=== PATIENT | female | born 1960 | race African-American/Black ===

== ENCOUNTER 2020-10-19 06:48 | Inpatient (IN) | payer OTHER, MEDICAID ==
[~2020-10-19] VITALS: Ht 162.6 cm; Wt 148.0 kg
[2020-10-19] MEDS ORDERED: LORazepam 2MG/ML-1ML VIAL IV ONE ×2 (07:00→07:15)
[2020-10-19] MEDS ORDERED: LORazepam 2MG/ML-1ML VIAL ONE (07:08)
[2020-10-19] MEDS ORDERED: SODIUM CHLORIDE 0.9% 1,000 ML IV ONE (07:15)
[2020-10-19] MEDS ORDERED: ACETAMINOPHEN 650 MG RECT SUPP PR ONE ×2 (07:15→07:30)
[2020-10-19] MEDS ORDERED: SODIUM CHLORIDE 0.9% 1,000 ML IVB ONE (07:15)
[2020-10-19 07:44] LABS: Urine Bacteria FEW /hpf (None Seen); Urine Blood TRACE /uL (Negative); Urine Hyaline Cast FEW /lpf (0 - 2); Urine Mucus FEW (None Seen); Urine Specific Gravity 1.019 (1.001-1.035); Urine WBC 1 /hpf (0 - 5)
[2020-10-19 07:52] LABS: Basophils # (auto) 0 10 ^3/uL (0-0.2); Eosinophils # (auto) 0 10 ^3/uL (0-0.8); Eosinophils % (auto) 0.1 % (0.0-7.0); Hemoglobin 12.9 g/dL (12.2-16.2); Lymphocytes # (auto) 1.2 10 ^3/uL (0.4-5.4)
[2020-10-19 07:56] LABS: Basophils % (auto) 0.4 % (0.0-2.0); Hematocrit 39.7 % (36.0-46.0); Lymphocytes % (auto) 13.8 % (10.0-50.0); Mean Corpuscular Hemoglobin 23.6 pg (28.0-32.0); Mean Corpuscular Hgb Conc. 32.5 g/dL (32.0-36.0); Mean Corpuscular Volume 72.5 fL (80.0-100.0); Monocytes # (auto) 0.2 10 ^3/uL (0-1.3); Monocytes % (auto) 2.7 % (0.0-12.0); Neutrophils # (auto) 7.1 10 ^3/uL (1.6-8.6); Red Blood Cells 5.48 10^6/uL (4.0-5.20); Red Cell Distribution Width 22.6 % (11.8-14.3); White Blood Cell 8.6 10^3/uL (4.4-10.8)
[2020-10-19 07:58] LABS: Alcohol, Urine < 3.0 mg/dL (0-10); Amphetamine Screen, Urine NEGATIVE (NEGATIVE); Barbiturate Scree,Urine NEGATIVE (NEGATIVE); Benzodiazephine Screen, Urine NEGATIVE (NEGATIVE); Cannabinoid Screen, Urine POSITIVE (NEGATIVE); Cocaine Screen, Urine NEGATIVE (NEGATIVE); Opiate Scree,Urine POSITIVE (NEGATIVE); Phencyclidine Screen, Urine NEGATIVE (NEGATIVE)
[2020-10-19 08:10] LABS: Anion Gap 8 (5-15); Blood Urea Nitrogen 9 mg/dL (7-18); Calcium 8.3 mg/dL (8.5-10.1); Carbon Dioxide 21 mmol/L (21-32); Chloride 106 mmol/L (98-107); Glucose 149 mg/dL (74-106); Potassium 3.6 mmol/L (3.5-5.1); Sodium 135 mmol/L (136-145)
[2020-10-19 08:13] LABS: Alanine Aminotransferase 19 U/L (13-56); Blood Alcohol < 3.0 mg/dL (0-5); GFR African American 54 mL/min; GFR Non-African American 45 mL/min
[2020-10-19 08:14] LABS: Lactic Acid w/Reflex 3.5 mmol/L (0.4-2.0)
[2020-10-19 08:15] LABS: Blood Alcohol < 3.0 mg/dL (0-5)
[2020-10-19] MEDS ORDERED: cefTRIAXone 1GM/50ML D5W 50 ML IV ONE (08:15)
[2020-10-19] MEDS ORDERED: AZITHROMYCIN 500MG/ 250ML 250 ML IV ONE (08:30)
[2020-10-19 08:36] LABS: Alkaline Phosphatase 46 U/L (45-117); Aspartate Aminotransferase 21 U/L (15-37); Bilirubin, Total 0.4 mg/dL (0.2-1.0); Total Protein 8.2 g/dL (6.4-8.2)
[2020-10-19 08:42] LABS: Alcohol, Urine < 3.0 mg/dL (0-10); Amphetamine Screen, Urine NEGATIVE (NEGATIVE); Barbiturate Scree,Urine NEGATIVE (NEGATIVE); Benzodiazephine Screen, Urine NEGATIVE (NEGATIVE); Cannabinoid Screen, Urine POSITIVE (NEGATIVE); Cocaine Screen, Urine NEGATIVE (NEGATIVE); Opiate Scree,Urine POSITIVE (NEGATIVE); Phencyclidine Screen, Urine NEGATIVE (NEGATIVE)
[2020-10-19] MEDS ORDERED: IOHEXOL 300 MG/ML 100ML BOTTLE IJ ONE (13:28)
[2020-10-19] MEDS ORDERED: NITROGLYCERIN 0.4 MG SL TAB SL PRN (16:45)
[2020-10-19] MEDS ORDERED: MORPHINE SULF INJ 2 MG/ML SYRINGE 1ML IV PRN (16:45)
[2020-10-19] MEDS ORDERED: ACETAMINOPHEN 325 MG TAB PO PRN (16:45)
[2020-10-19] MEDS ORDERED: ESCI-28 PO (16:48)
[2020-10-19] MEDS ORDERED: ATEN100T PO (16:48)
[2020-10-19] MEDS: SOD CHL 0.45% 1,000 ML IV SCH (17:23)
[2020-10-19] MEDS: metroNIDAZOLE 500MG/100ML 100 ML IV SCH (17:23)
[2020-10-19 18:35] VITALS: BP 153/69
[2020-10-19] MEDS: ASPirin 81 mg TAB PO SCH (18:42)
[2020-10-19] MEDS: ATORVASTATIN 20 MG TAB PO SCH (18:42)
[2020-10-19 19:15] LABS: Cholesterol 101 mg/dL (< 200)
[2020-10-19 19:18] LABS: HDL Cholesterol 35 mg/dL (40-59); LDL Cholesterol 62 mg/dL (< 100); Triglycerides 68 mg/dL (< 150)
[2020-10-19 22:00] VITALS: BP 127/55
[2020-10-20] MEDS: HYDROcodone-ACET 5/325MG TAB PO PRN ×4 (02:53→19:40)
[2020-10-20] MEDS: metroNIDAZOLE 500MG/100ML 100 ML IV SCH (04:44)
[2020-10-20 05:00] VITALS: BP 141/86
[2020-10-20 05:36] LABS: Eosinophils # (auto) 0 10 ^3/uL (0-0.8); Eosinophils % (auto) 0.1 % (0.0-7.0); Hemoglobin 11.1 g/dL (12.2-16.2); Lymphocytes % (auto) 12.9 % (10.0-50.0); Mean Corpuscular Hemoglobin 23.5 pg (28.0-32.0)
[2020-10-20 05:39] LABS: Basophils # (auto) 0 10 ^3/uL (0-0.2); Basophils % (auto) 0.4 % (0.0-2.0); Hematocrit 34.5 % (36.0-46.0); Lymphocytes # (auto) 1.3 10 ^3/uL (0.4-5.4); Mean Corpuscular Hgb Conc. 32.3 g/dL (32.0-36.0); Mean Corpuscular Volume 72.9 fL (80.0-100.0); Monocytes # (auto) 1.3 10 ^3/uL (0-1.3); Monocytes % (auto) 12.6 % (0.0-12.0); Neutrophils # (auto) 7.7 10 ^3/uL (1.6-8.6); Red Blood Cells 4.73 10^6/uL (4.0-5.20); White Blood Cell 10.4 10^3/uL (4.4-10.8)
[2020-10-20 05:41] LABS: Red Cell Distribution Width 23.4 % (11.8-14.3)
[2020-10-20 05:54] LABS: Albumin 2.6 g/dL (3.4-5.0); BUN/Creatinine Ratio 10.6; Calcium 7.7 mg/dL (8.5-10.1); Potassium 3.4 mmol/L (3.5-5.1)
[2020-10-20 05:56] LABS: Bilirubin, Total 0.6 mg/dL (0.2-1.0)
[2020-10-20] MEDS: ATORVASTATIN 20 MG TAB PO SCH (08:07)
[2020-10-20] MEDS: cefTRIAXone 1GM/50ML D5W 50 ML IV SCH (08:07)
[2020-10-20] MEDS: ASPirin 81 mg TAB PO SCH (08:07)
[2020-10-20] MEDS ORDERED: POTASSIUM CHL 10 Meq TABLET PO ONE (08:15)
[2020-10-20 09:00] VITALS: BP 151/66
[2020-10-20] MEDS ORDERED: IPRATROPIUM BROM 0.5 MG/2.5ML INH SOL NEB PRN (09:30)
[2020-10-20] MEDS ORDERED: NITROGLYCERIN 0.4 MG SL TAB SL PRN (09:30)
[2020-10-20] MEDS ORDERED: guaiFENesin-DM 100/10mg/5ml SYR PO PRN (09:30)
[2020-10-20] MEDS ORDERED: MORPHINE SULF INJ 2 MG/ML SYRINGE 1ML IV PRN (09:30)
[2020-10-20] MEDS ORDERED: ENOXAPARIN SOD 40 MG/0.4 ML SYRINGE SC SCH (10:00)
[2020-10-20 10:20] VITALS: BP 141/86
[2020-10-20] MEDS: AZITHROMYCIN 250 MG TAB PO SCH (10:28)
[2020-10-20 13:00] VITALS: BP 160/91
[2020-10-20] MEDS: SOD CHL 0.45% 1,000 ML IV SCH (13:39)
[2020-10-20] MEDS: LISINOPRIL 10 MG TAB PO SCH (14:13)
[2020-10-20 17:00] VITALS: BP 197/70
[2020-10-20] MEDS: hydrALAZINE HCL 25 MG TAB PO SCH (17:05)
[2020-10-20 20:52] VITALS: BP 142/71
[2020-10-20] MEDS: ENOXAPARIN SOD 40 MG/0.4 ML SYRINGE SC SCH (21:39)
[2020-10-21] MEDS ORDERED: dilTIAZem 25 MG/5 ML VIAL IV ONE ×2 (00:15→06:45)
[2020-10-21] MEDS: hydrALAZINE HCL 25 MG TAB PO SCH ×3 (01:10→17:26)
[2020-10-21] MEDS: SOD CHL 0.45% 1,000 ML IV SCH (02:05)
[2020-10-21] MEDS: HYDROcodone-ACET 5/325MG TAB PO PRN ×3 (04:40→14:50)
[2020-10-21 05:00] VITALS: BP 106/59
[2020-10-21 05:40] LABS: Basophils # (auto) 0.1 10 ^3/uL (0-0.2); Eosinophils # (auto) 0.1 10 ^3/uL (0-0.8); Nucleated Red Blood Cells % 0.1 %
[2020-10-21 05:42] LABS: Hematocrit 36.7 % (36.0-46.0); Lymphocytes % (auto) 24.9 % (10.0-50.0); Mean Corpuscular Hemoglobin 23.5 pg (28.0-32.0); Mean Corpuscular Hgb Conc. 32.6 g/dL (32.0-36.0); Mean Corpuscular Volume 72.1 fL (80.0-100.0); Monocytes # (auto) 0.7 10 ^3/uL (0-1.3); Monocytes % (auto) 9.1 % (0.0-12.0); Neutrophils # (auto) 5.1 10 ^3/uL (1.6-8.6); Red Blood Cells 5.09 10^6/uL (4.0-5.20); White Blood Cell 7.9 10^3/uL (4.4-10.8)
[2020-10-21 05:53] LABS: Red Cell Distribution Width 22.7 % (11.8-14.3)
[2020-10-21 06:03] LABS: Potassium 3.2 mmol/L (3.5-5.1)
[2020-10-21 06:10] LABS: Albumin 2.5 g/dL (3.4-5.0); BUN/Creatinine Ratio 8.9; Bilirubin, Total 0.5 mg/dL (0.2-1.0); Total Protein 7.1 g/dL (6.4-8.2)
[2020-10-21] MEDS ORDERED: HYDR-4072 PO (07:15)
[2020-10-21] MEDS ORDERED: MORP1TAB14 PO (07:15)
[2020-10-21] MEDS ORDERED: ZOLP10TA PO (07:20)
[2020-10-21] MEDS: LISINOPRIL 10 MG TAB PO SCH (08:48)
[2020-10-21 09:00] VITALS: BP 99/72
[2020-10-21] MEDS: ASPirin 81 mg TAB PO SCH (09:12)
[2020-10-21] MEDS: ENOXAPARIN SOD 40 MG/0.4 ML SYRINGE SC SCH (09:13)
[2020-10-21] MEDS: AZITHROMYCIN 250 MG TAB PO SCH (09:13)
[2020-10-21] MEDS: ATORVASTATIN 20 MG TAB PO SCH (09:13)
[2020-10-21] MEDS: cefTRIAXone 1GM/50ML D5W 50 ML IV SCH (09:13)
[2020-10-21] MEDS ORDERED: APIX5TAB OR (11:34)
[2020-10-21] MEDS ORDERED: LISI-716 PO (11:34)
[2020-10-21] MEDS ORDERED: DILT120C54 PO (11:34)
[2020-10-21] MEDS ORDERED: ASPI1CHW15 PO (11:34)
[2020-10-21 13:00] VITALS: BP 140/70
[2020-10-21 13:01] VITALS: BP 99/72
[2020-10-21] MEDS ORDERED: AMIODARONE HCL 200 MG TAB PO ONE (14:45)
[2020-10-21 17:00] VITALS: BP 148/66
[2020-10-21] MEDS: metroNIDAZOLE 500 MG TAB PO SCH (21:11)
[2020-10-21 22:00] VITALS: BP 128/66
[2020-10-22] MEDS: hydrALAZINE HCL 25 MG TAB PO SCH ×3 (00:21→17:59)
[2020-10-22] MEDS ORDERED: POTASSIUM CHLORIDE 40 MEQ, LIDOCAINE 1% (LOCAL ANESTH.) 4 ML in SODIUM CHL 0.9% 250 ML IV ONE (00:30)
[2020-10-22] MEDS: AMIODARONE HCL 200 MG TAB PO SCH ×3 (00:48→21:23)
[2020-10-22] MEDS ORDERED: POTASSIUM CHL 20 Meq TABLET PO ONE (01:30)
[2020-10-22] MEDS: HYDROcodone-ACET 5/325MG TAB PO PRN ×4 (02:04→21:30)
[2020-10-22 05:00] VITALS: BP 121/90
[2020-10-22] MEDS: metroNIDAZOLE 500 MG TAB PO SCH ×3 (05:31→21:23)
[2020-10-22] MEDS: VANCOMYCIN HCL 125MG/5ML ORAL SOL PO SCH ×4 (05:31→21:23)
[2020-10-22 09:00] VITALS: BP 91/55
[2020-10-22] MEDS: ASPirin 81 mg TAB PO SCH (09:28)
[2020-10-22] MEDS: ATORVASTATIN 20 MG TAB PO SCH (09:28)
[2020-10-22] MEDS: AZITHROMYCIN 250 MG TAB PO SCH (09:28)
[2020-10-22] MEDS: cefTRIAXone 1GM/50ML D5W 50 ML IV SCH (09:28)
[2020-10-22] MEDS ORDERED: AMIO200T4 PO (09:53)
[2020-10-22] MEDS ORDERED: METR500T PO (09:53)
[2020-10-22] MEDS ORDERED: VANC125PO PO (09:53)
[2020-10-22] MEDS ORDERED: FUROSEMIDE 40 MG/4 ML VIAL IV ONE (11:15)
[2020-10-22 13:08] VITALS: BP 133/86
[2020-10-22] MEDS ORDERED: IOHEXOL 350 MG/ML 100ML IJ ONE (13:39)
[2020-10-22 17:00] VITALS: BP 99/64
[2020-10-22] MEDS ORDERED: APIX5TAB OR (17:51)
[2020-10-22 22:00] VITALS: BP 164/79
[2020-10-23] MEDS: hydrALAZINE HCL 25 MG TAB PO SCH ×2 (00:44→08:41)
[2020-10-23 05:05] VITALS: BP 105/60
[2020-10-23] MEDS: metroNIDAZOLE 500 MG TAB PO SCH (05:20)
[2020-10-23] MEDS: HYDROcodone-ACET 5/325MG TAB PO PRN (05:20)
[2020-10-23] MEDS: VANCOMYCIN HCL 125MG/5ML ORAL SOL PO SCH (05:20)
[2020-10-23] MEDS: AMIODARONE HCL 200 MG TAB PO SCH (08:40)
[2020-10-23] MEDS: ATORVASTATIN 20 MG TAB PO SCH (08:40)
[2020-10-23] MEDS: ASPirin 81 mg TAB PO SCH (08:40)
[2020-10-23] MEDS ORDERED: POTASSIUM CHL 20 Meq TABLET PO SCH (10:00)
== END 2020-10-23 09:15 | disposition home health service (06) | DRG 314 ==
LOC: EDBD 06:48 → ER 06:48 → TELE 16:45 → INTOOBSV 16:45 → TELE-EAST 18:04 → OBSVTOIN 10-20 09:28
PROVIDERS: ADMIT Hospitalist; ATTEND Hospitalist
DX: I27.20 Pulmonary hypertension, unspecified (principal); I26.99 Other pulmonary embolism without acute cor pulmonale; G92 Toxic encephalopathy; A04.72 Enterocolitis due to Clostridium difficile, not specified as recurrent; Z68.43 Body mass index [BMI] 50.0-59.9, adult; T40.601A Poisoning by unspecified narcotics, accidental (unintentional), initial encounter; E66.01 Morbid (severe) obesity due to excess calories; G89.4 Chronic pain syndrome; I10 Essential (primary) hypertension; I48.91 Unspecified atrial fibrillation; R55 Syncope and collapse; E87.6 Hypokalemia; F03.90 Unspecified dementia, unspecified severity, without behavioral disturbance, psychotic disturbance, mood disturbance, and anxiety; F17.210 Nicotine dependence, cigarettes, uncomplicated; E03.9 Hypothyroidism, unspecified; Z20.822 Contact with and (suspected) exposure to COVID-19; Y92.89 Other specified places as the place of occurrence of the external cause; Z71.6 Tobacco abuse counseling; Z90.710 Acquired absence of both cervix and uterus
CPT/HCPCS: 36415; 36600; 70450; 70551; 71045; 71275; 72125; 73610; 73630; 74177; 80053; 80061; 80307; 80320; 81001; 82550; 82805; 82962; 83036; 83605; 83615; 83735; 84132; 84443; 84484; 85025; 85048; 87040; 87045; 87426; 87427; 87493; 93005; 93306; 93886; 93971; 94640; 96361; 96365; 96375; 99291; G0378; J0696; J2001; J3490; J7042

== ENCOUNTER 2020-11-01 21:01 | Emergency (ER) | payer OTHER, MEDICAID ==
[~2020-11-01] VITALS: Ht 154.9 cm; Wt 149.7 kg
[~2020-11-01 21:01] MED LIST: AMIO200T4 PO; APIX5TAB OR; ASPI1CHW15 PO; ESCI-28 PO; HYDR-4072 PO; LISI-716 PO; METR500T PO; VANC125PO PO
[2020-11-02 00:57] LABS: White Blood Cell 11.4 10^3/uL (4.4-10.8)
[2020-11-02 00:59] LABS: Basophils # (auto) 0.1 10 ^3/uL (0-0.2); Basophils % (auto) 0.8 % (0.0-2.0); Eosinophils # (auto) 0 10 ^3/uL (0-0.8); Eosinophils % (auto) 0.3 % (0.0-7.0); Hematocrit 41.5 % (36.0-46.0); Hemoglobin 13.6 g/dL (12.2-16.2); Lymphocytes # (auto) 1.4 10 ^3/uL (0.4-5.4); Lymphocytes % (auto) 12.6 % (10.0-50.0); Mean Corpuscular Hemoglobin 24.7 pg (28.0-32.0); Mean Corpuscular Hgb Conc. 32.7 g/dL (32.0-36.0); Mean Corpuscular Volume 75.4 fL (80.0-100.0); Monocytes # (auto) 0.9 10 ^3/uL (0-1.3); Monocytes % (auto) 7.5 % (0.0-12.0); Neutrophils % (auto) 78.8 % (37.0-80.0)
[2020-11-02 01:10] LABS: Alanine Aminotransferase 16 U/L (13-56); Albumin 3.2 g/dL (3.4-5.0); Anion Gap 8 (5-15); Aspartate Aminotransferase 14 U/L (15-37); BUN/Creatinine Ratio 17.1; Blood Urea Nitrogen 13 mg/dL (7-18); Calcium 8.5 mg/dL (8.5-10.1); Carbon Dioxide 19 mmol/L (21-32); Chloride 115 mmol/L (98-107); GFR African American 100 mL/min; GFR Non-African American 83 mL/min; Glucose 98 mg/dL (74-106); Potassium 3.3 mmol/L (3.5-5.1); Sodium 142 mmol/L (136-145)
[2020-11-02 01:14] LABS: Alkaline Phosphatase 55 U/L (45-117); Bilirubin, Total 0.5 mg/dL (0.2-1.0); Total Protein 8.3 g/dL (6.4-8.2)
[2020-11-02 01:25] LABS: Red Cell Distribution Width 25.1 % (11.8-14.3)
[2020-11-02] MEDS ORDERED: MORPHINE SULFATE 4 MG/ML SYR/VIAL IV ONE (05:30)
[2020-11-02] MEDS ORDERED: SODIUM CHLORIDE 0.9% 1,000 ML IV ONE (06:15)
[2020-11-02] MEDS ORDERED: POTASSIUM EFFERVESENT TAB 25 MEQ PO ONE (07:45)
[2020-11-02] MEDS ORDERED: cefTRIAXone 1GM/50ML D5W 50 ML IV ONE (08:00)
[2020-11-02 11:11] VITALS: BP 112/60
== END 2020-11-02 11:52 | disposition home or self-care (01) ==
LOC: EDBD 21:01 → ER 21:03
DX: R55 Syncope and collapse (principal); R10.84 Generalized abdominal pain; I10 Essential (primary) hypertension; Z79.82 Long term (current) use of aspirin; Z79.2 Long term (current) use of antibiotics; Z79.899 Other long term (current) drug therapy; Z88.0 Allergy status to penicillin
CPT/HCPCS: 36415; 70450; 74176; 80053; 80320; 84484; 85025; 96361; 96365; 96375; 99285; J0696; J2270; J7030; 93005